=== PATIENT | male | born 1990 | race Two or more races ===

== ENCOUNTER 2016-12-13 17:54 | Emergency (ER) | payer OTHER | END 2016-12-13 19:00 | disposition home or self-care (01) | DX: K43.9 Ventral hernia without obstruction or gangrene (principal); F17.200 Nicotine dependence, unspecified, uncomplicated ==

== ENCOUNTER 2017-02-06 09:36 | Day surgery (SDC) | payer OTHER ==
[~2017-02-06 09:36] MED LIST: ceFAZolin 2 GM/50 ML 50 ML IV ONE
[2017-02-06] MEDS ORDERED: LACTATED RINGERS 1,000 ML IV ONE (10:05)
[2017-02-06] MEDS ORDERED: BUPIVACAINE 0.5% PF 30 ML VIAL INFIL ONE ×2 (10:24→11:27)
[2017-02-06] MEDS ORDERED: LIDOCAINE-MPF 2% 2 ML AMP SUBQ ONE (11:00)
[2017-02-06] MEDS ORDERED: fentaNYL 100 MCG/2 ML VIAL IVP ONE (11:00)
[2017-02-06] MEDS ORDERED: ONDANSETRON 4 MG/2 ML VIAL IVP ONE (11:00)
[2017-02-06] MEDS ORDERED: MIDAZOLAM 2 MG/2 ML VIAL IVP ONE (11:00)
[2017-02-06] MEDS ORDERED: PROPOFOL 200 MG/20 ML VIAL IVP ONE (11:00)
--- NOTE | 2017-02-06 11:39 | OPERATIVE REPORT ---
DATE OF SURGERY: 02/06/2017 00:00:00 SURGEON: Christy Haile MD. PREOPERATIVE DIAGNOSIS: Epigastric hernia. POSTOPERATIVE DIAGNOSIS: Epigastric hernia. NAME OF PROCEDURE: Repair of epigastric hernia. INDICATION FOR PROCEDURE: This is a 26-year-old male who presented to my office with a symptomatic reducible epigastric hernia. FINDINGS: After obtaining informed consent from the patient, he was brought into the operating room and positioned on the operating table in the supine position, taking note of pressure points. The patient was intubated by Anesthesia. He was administered 2 grams of Ancef. He was prepped and draped in the usual sterile fashion and a time-out was taken according to protocol. A vertical 3 cm incision was created above the palpable epigastric defect. This was deepened down towards the subcutaneous tissue and the hernia sac was identified. The hernia was circumferentially dissected from the subcutaneous tissue down to the level of fascia. The fascial defect was noted to be approximately 5 mm. The hernia was containing fat. The hernia sac and its contents were transected using electrocautery. There was a small amount of omental bleeding, which was controlled with electrocautery. The fascial defect was then closed with a [id number] #0 Prolene suture. The cavity was irrigated and hemostasis was noted to be achieved. The subcutaneous tissue was closed with 3-0 Vicryl. The skin was closed with 4-0 Monocryl and Dermabond was applied. The patient was extubated and taken to the recovery room in stable condition. ESTIMATED BLOOD LOSS: Less than 5 mL. COMPLICATIONS: None. SPECIMENS: None. JOB #: [id number] EXT [facility][id number] [facility]
[2017-02-06] MEDS ORDERED: HYDROmorphone 1 MG/ML SYRINGE ONE (11:58)
[2017-02-06 12:58] VITALS: BP 128/62
== END 2017-02-06 09:37 | disposition home or self-care (01) ==
LOC: SDS 09:36
PROVIDERS: ATTEND Surgery
PROC: 0WQF0ZZ Repair Abdominal Wall, Open Approach (ICD-10-PCS; principal; 2017-02-06 10:45)
DX: K43.9 Ventral hernia without obstruction or gangrene (principal); F17.210 Nicotine dependence, cigarettes, uncomplicated
CPT/HCPCS: 49570; J0690; J1170; J7120

== ENCOUNTER 2018-03-02 08:17 | Day surgery (SDC) | payer OTHER ==
[~2018-03-02 08:17] MED LIST changes: +LACTATED RINGERS 1,000 ML IV ONE; +ceFAZolin 1 GM VIAL ONE; -ceFAZolin 2 GM/50 ML 50 ML IV ONE
[2018-03-02] MEDS ORDERED: BUPIVACAINE 0.5% PF 30 ML VIAL ONE (08:41)
--- NOTE | 2018-03-02 08:45 | ANESTHESIA ---
Pre-Anesthesia VS, & Labs - Diagnosis Bilateral inguinal hernias - Procedure Laparascopic bilateral hernia repair Vital Signs: Temp Pulse Resp BP Pulse Ox 36.4 C L 77 16 123/74 97 03/02/18 08:27 03/02/18 08:27 03/02/18 08:27 03/02/18 08:27 03/02/18 08:27 Height 5 ft 9 in Weight (kg) 95.1 kg Body Mass Index 29.6 - NPO >8 hours Last Fluid Intake: Coffee at 0730 Home Medications and Allergies Home Medications: Ambulatory Orders Medication Instructions Recorded Confirmed No Known Home Medications 12/13/16 01/30/17 No Known Home Medications 12/13/16 Allergies/Adverse Reactions: Allergies Allergy/AdvReac Type Severity Reaction Status Date / Time No Known Drug Allergies Allergy Verified 12/13/16 18:03 Anes History & Medical History - Anesthetic History Anesthesia Complications: reports: No previous complications Family history of Anesthesia Complications: Denies Family history of Malignant Hyperthermia: Denies - Medical History Cardiovascular: reports: None Pulmonary: reports: None Gastrointestinal: reports: GERD, Other Urinary: reports: None Neuro: reports: None Musculoskeletal: reports: None Endocrine/Autoimmune: reports: None Blood Disorders: reports: None Skin: reports: None Smoking Status: Current every day smoker Psychosocial: reports: No issues indicated Exam General: Alert Dental: WNL Mouth Opening: Greater than 4 Fingerbreadths Neck Mobility: Normal Mallampati classification: I Respiratory: Lungs clear Cardiovascular: Regular rate Neurological: Normal speech Mental/Cognitive Status: Alert/Oriented X3 Cognitive Status: Within normal limits Plan Anesthesia Type: General Consent for Procedure(s) Verified and Reviewed: Yes Code Status: Attempt Resuscitation ASA classification: 1-Healthy patient Is this case an emergency?: No
--- NOTE | 2018-03-02 08:49 | HISTORY & PHYSICAL EXAMINATION ---
HPI - History of Present Illness HPI Comment/Other: Update from H and P 01/29/2018. Mr. Schultz Is here in consultation for bilateral inguinal hernias. He had an epigastric hernia last year that I repaired. 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 He was seen by the on board surgeon and told he had a hernia. Upon returning home he saw his primary care physician who ordered an ultrasound of the groin and he was noted to have bilateral fat-containing inguinal hernias. He states that he does not have significant pain but if he does do any activity or lifting he feels discomfort in the left groin. Current Meds: None Past Medical History: Reviewed history and no changes required: Anxiety Panic Attacks Past Surgical History: Reviewed history and no changes required: Epigastric Hernia Repair Family History Summary: Reviewed history Last on 01/17/2017 and no changes required:01/29/2018 Mother (biol.) - Has Family History of Depression - Entered On: 01/17/2017 Mother (biol.) - Has Family History of Hypertension - Entered On: 01/17/2017 Mother (biol.) - Has Family History of Lung/Respiratory Disease - Entered On: 01/17/2017 Social History: Reviewed history and no changes required: Risk Factors: Smoked Tobacco Use: Current every day smoker Cigarettes: Yes Drug use: no Alcohol use: yes Drinks per day: 1-2 a week Exercise: yes Times per week: 2-3 Type of Exercise: Gym Review of Systems General Denies weight loss. GI Denies nausea and vomiting. CV Denies palpitations. Resp Denies shortness of breath. Psych Complains of anxiety. Heme Denies abnormal bruising. Physical Exam General: normal appearance. Lungs: clear bilaterally to A & P Heart: regular rate and rhythm, S1, S2 without murmurs, rubs, gallops, or clicks Abdomen: Well-healed epigastric incisional scar with no evidence of reherniation. Genitalia: Bilateral inguinal hernias are palpable upon Valsalva with the left greater than the right. Both are easily reducible. Pulses: pulses normal in all 4 extremities Extremities: no clubbing, cyanosis, edema, or deformity noted with normal full range of motion of all joints Psych: alert and cooperative; normal mood and affect; normal attention span and concentration Impression & Recommendations: Problem # 1: bilateral inguinal hernias I just discussed with the patient the option for watchful waiting versus surgical repair of his bilateral hernias. He has opted for surgical repair. We discussed laparoscopic approach given the bilaterality and he agrees to proceed with this approach. The procedure was explained to the patient in detail including potential risks involved including but not limited to bleeding, infection and damage to related structures specifically including nerve structures. He understands all of the above and agrees to proceed. A postoperative handout was provided for the patient. PMH/PSH - Past Medical History Cardiovascular: positive: None Respiratory: positive: None Endocrine/Autoimmune: positive: None GI: positive: GERD, Other : positive: None HEENT: positive: Other Psych: positive: Anxiety Musculoskeletal: positive: None Derm: positive: None MRSA Hx?: No Social & Family Hx - Social History Does the pt smoke?: Yes Smoking Status: Current every day smoker Meds/Allgy - Home Medications Home Medications: Ambulatory Orders Medication Instructions Recorded Confirmed No Known Home Medications 12/13/16 01/30/17 - Allergies Allergies/Adverse Reactions: Allergies Allergy/AdvReac Type Severity Reaction Status Date / Time No Known Drug Allergies Allergy Verified 12/13/16 18:03 Exam - Vital Signs Vital Signs: Vital Signs x48h Temp Pulse Resp BP Pulse Ox 03/02/18 08:27 36.4 C L 77 16 123/74 97
[2018-03-02] MEDS ORDERED: BUPIVACAINE 0.5%-EPI 1:200000 PF 30 ML VIAL SUBQ ONE (09:20)
[2018-03-02] MEDS ORDERED: DEXAMETHASONE 4 MG/ML VIAL IVP ONE (09:34)
[2018-03-02] MEDS ORDERED: ePHEDrine 50 MG/ML VIAL IVP ONE (09:34)
[2018-03-02] MEDS ORDERED: LIDOCAINE-MPF 2% 5 ML VIAL IM ONE (09:34)
[2018-03-02] MEDS ORDERED: ONDANSETRON 4 MG/2 ML VIAL IVP ONE (09:34)
[2018-03-02] MEDS ORDERED: NEOSTIGMINE 1 MG/1 ML 10 ML MDV IVP ONE (09:34)
[2018-03-02] MEDS ORDERED: fentaNYL 100 MCG/2 ML VIAL IVP ONE (09:34)
[2018-03-02] MEDS ORDERED: ROCURONIUM 50 MG/5 ML VIAL IVP ONE (09:34)
[2018-03-02] MEDS ORDERED: ceFAZolin 1 GM VIAL IV ONE (09:34)
[2018-03-02] MEDS ORDERED: KETOROLAC 30 MG/ML VIAL IVP ONE (09:34)
[2018-03-02] MEDS ORDERED: GLYCOPYRROLATE 1 MG/5 ML VIAL IVP ONE (09:34)
[2018-03-02] MEDS ORDERED: ACETAMINOPHEN 1,000 MG/100 ML 100 ML IV ONE (09:34)
[2018-03-02] MEDS ORDERED: PROPOFOL 200 MG/20 ML VIAL IVP ONE (09:34)
[2018-03-02] MEDS ORDERED: BUPIVACAINE 0.5% PF 30 ML VIAL INFIL ONE (09:38)
[2018-03-02] MEDS ORDERED: LACTATED RINGERS 1,000 ML IV ONE (10:58)
[2018-03-02] MEDS: HYDROmorphone 1 MG/ML CARPUJECT ONE ×3 (11:05→11:10)
--- NOTE | 2018-03-02 11:09 | OPERATIVE REPORT ---
Operative Report - General Procedure Date: 03/02/18 Procedure Performed: laparoscopic bilateral inguinal hernia repair - Other Other Information/Narrative: SURGEON: Dr. Haile. PREOPERATIVE DIAGNOSIS: Symptomatic left inguinal hernia. POSTOPERATIVE DIAGNOSIS: Bilateral inguinal hernias. INDICATIONS FOR PROCEDURE: This is a 27-year-old gentleman with a painful left inguinal hernia, who presents for elective repair. FINDINGS: After obtaining informed consent from the patient, he was brought into the operating room and positioned on the operating table in the supine position, taking note of pressure points. He was intubated by Anesthesia. Perioperative antibiotics were administered. SCD boots were applied. He was prepped and draped in the usual sterile fashion. A timeout was taken according to protocol. An infraumbilical 1.5 cm incision was created and deepened down to the anterior rectus sheath. This was exposed using blunt dissection. The anterior sheath was then opened with a 15 blade and extended with Metzenbaums, exposing the underlying rectus muscle. The rectus muscle was swept laterally with the retractor and the surgeon's finger inserted into the retrorectus space to perform blunt dissection. The dissecting balloon was then inserted and inflated under direct visualization. The balloon was then removed and was exchanged for the operative balloon. Two 5 mm ports were placed in the infraumbilical midline. The patient was positioned in Trendelenburg with the left side elevated. The fatty tissue overlying the pubic bone was dissected to expose the pubic bone. I then turned my attention to the patient's left abdominal wall and pushed the peritoneum down, exposing the left lateral abdominal musculature. I worked my way medially towards the cord structures continuing to push the peritoneum down. A small hernia sac, which was partially reduced, was noted in this area. The cord structures were skeletonized and the hernia completely dissected off of the cord structures. The vas deferens was protected during this dissection. The epigastric vessels were also visualized and protected. The direct space was then visualized and there was some fat within the space, but no hernia was noted. I then turned my attention to the patient's right groin. The patient was then positioned right side up. I dissected in a similar manner dissecting the fatty tissue overlying the pubic bone working my way medially to laterally. I then turned my attention to the lateral abdominal wall and pushed the peritoneum down, exposing the abdominal musculature. I worked my way medially towards the cord structures continuing to push the peritoneum down. A cord lipoma was noted and was reduced. A small hernia sac was noted at the proximal cord. The cord structures were skeletonized and the hernia completely dissected off of the cord structures. The vas deferens was protected during this dissection. The epigastric vessels were also visualized and protected. The direct space was then visualized and there was some fat within the space, but no hernia was noted. A large Bard regular weight mesh was selected for the patient's left groin. This was inserted through the umbilical port and positioned appropriately. The medial aspect of the mesh was noted to be slightly crossing the midline and the mesh was seated against the abdominal wall as to cover the indirect, direct and femoral spaces. It was tacked with a single tack placed above the pubic symphysis. A large medium weight mesh was then selected for the patient's right groin. This was also inserted through the umbilical port and again positioned into space with the medial aspect of the mesh slightly crossing the midline and the mesh completely covering the direct, indirect, and femoral spaces. The cavity was then inspected for ensure hemostasis had been achieved and it had. The mesh was then held into place as the retrorectal air was allowed to desufflate. The umbilical fascial incision was then closed with a running 0 Vicryl suture. 30 mL of local anesthetic was infiltrated. The skin incisions were closed with 4-0 Monocryl. Dermabond was then applied. The patient was subsequently extubated and taken to the recovery room in stable condition. ESTIMATED BLOOD LOSS: 5 mL COMPLICATIONS: None.
[2018-03-02] MEDS ORDERED: HYDROcod/ACETAM 10 MG/325 MG TABLET PO PRN (11:10)
[2018-03-02] MEDS ORDERED: ONDANSETRON 4 MG/2 ML VIAL IVP PRN (11:10)
[2018-03-02] MEDS ORDERED: MORPHINE 10 MG/ML VIAL ONE (11:15)
[2018-03-02] MEDS ORDERED: oxyCOD/ACETAMIN 5 MG/325 MG TABLET PO ONE (12:10)
[2018-03-02 12:38] VITALS: BP 123/83
== END 2018-03-02 08:18 | disposition home or self-care (01) ==
LOC: SDS 08:17
PROVIDERS: ATTEND Surgery
PROC: 0YUA4JZ Supplement Bilateral Inguinal Region with Synthetic Substitute, Percutaneous Endoscopic Approach (ICD-10-PCS; principal; 2018-03-02 09:15)
DX: K40.20 Bilateral inguinal hernia, without obstruction or gangrene, not specified as recurrent (principal); F17.210 Nicotine dependence, cigarettes, uncomplicated; K21.9 Gastro-esophageal reflux disease without esophagitis
CPT/HCPCS: 49650; A9270; C1781; J0131; J1170; J7120

== ENCOUNTER 2022-06-04 11:17 | Outpatient (CLI) | payer OTHER ==
--- NOTE | 2022-06-04 13:19 | XRAY Report ---
PROCEDURE: Chest 2 View X-Ray INDICATIONS: WALKING PNEUMONIA TECHNIQUE: 2 views of the chest were acquired. COMPARISON: None FINDINGS: Surgical changes and devices: None. Lungs and pleura: No pleural effusions or pneumothorax. Low lung volumes can be seen, causing a railroad crossing protection maintainer wded appearance to the lung markings. No focal infiltrates are seen. Mediastinum: Mediastinal contours are normal. Heart size is normal. Bones and chest wall: No suspicious bony abnormalities. Soft tissues appear unremarkable. IMPRESSION: Low lung volumes, without focal infiltrates. Reviewed by: Carlos Ibarra MD on 06/04/2022 12:17 PM [facility] Approved by: Carlos Ibarra MD on 06/04/2022 12:17 PM [facility] Station ID: [id number]
== END 2022-06-04 11:18 | disposition home or self-care (01) ==
LOC: DI 11:17
PROVIDERS: ATTEND Nurse Practitioner
DX: J18.9 Pneumonia, unspecified organism (principal)